=== PATIENT | male | born 1995 | race African-American/Black ===

== ENCOUNTER → 2022-07-11 | Outpatient (CLI) | payer OTHER | LOC: M PLAIMG 10:38 | PROVIDERS: ATTEND Pain Medicine Interventional Pain Medicine | DX: M54.12 Radiculopathy, cervical region (principal) ==

== ENCOUNTER → 2022-10-23 | Outpatient (CLI) | payer OTHER | LOC: M PLAIMG 06:38 → M RAD 06:38 | PROVIDERS: ATTEND Physician Assistant | DX: M25.551 Pain in right hip (principal); M25.552 Pain in left hip ==

== ENCOUNTER → 2023-05-12 | Outpatient (CLI) | payer OTHER | LOC: M RAD 14:47 | PROVIDERS: ATTEND Orthopaedic Surgery | DX: M25.551 Pain in right hip (principal); M25.552 Pain in left hip ==

== ENCOUNTER → 2023-07-02 | Outpatient (CLI) | payer OTHER ==
[~2023-07-02] MED LIST: ISOVUE-300 61% 100ML VIAL As Ordered ONE; LIDOCAINE 1% MDV 20ML VIAL As Ordered ONE; PROHANCE 279.3MG/ML 5ML VIAL As Ordered ONE
== END ==
LOC: M RAD 06:40
PROVIDERS: ATTEND Physician Assistant Surgical
DX: M24.112 Other articular cartilage disorders, left shoulder (principal)
CPT/HCPCS: 23350; 73223; 77002; A9576; Q9967